=== PATIENT | male | born 1950 | race Caucasian/White ===

== ENCOUNTER → 2016-09-07 | Outpatient (CLI) | payer OTHER | LOC: BHFA 13:15 | PROVIDERS: ATTEND Internal Medicine Cardiovascular Disease | DX: I48.91 Unspecified atrial fibrillation (principal); I25.10 Atherosclerotic heart disease of native coronary artery without angina pectoris; E78.00 Pure hypercholesterolemia, unspecified ==

== ENCOUNTER → 2016-09-17 | Outpatient (CLI) | payer OTHER | LOC: BHFA 10:00 | PROVIDERS: ATTEND Internal Medicine Cardiovascular Disease | DX: I48.91 Unspecified atrial fibrillation (principal); R94.30 Abnormal result of cardiovascular function study, unspecified | CPT/HCPCS: 78452; 93017; A9500 ==

== ENCOUNTER → 2017-05-31 | Outpatient (CLI) | payer OTHER, MEDICARE | LOC: FIMAGING 10:44 | PROVIDERS: ATTEND Physician Assistant | DX: R22.1 Localized swelling, mass and lump, neck (principal) ==

== ENCOUNTER → 2017-06-19 | Outpatient (CLI) | payer OTHER, MEDICARE ==
[~2017-06-19] MED LIST: IOPAMIDOL (ISOVUE 370) 100 ML BTL IV ONE
== END ==
LOC: FIMAGING 08:22
PROVIDERS: ATTEND Internal Medicine Cardiovascular Disease
DX: Z01.810 Encounter for preprocedural cardiovascular examination (principal); I48.91 Unspecified atrial fibrillation
CPT/HCPCS: 75572; 93017; 93306; Q9967

== ENCOUNTER 2017-07-04 06:49 | Observation (INO) | payer OTHER, MEDICARE ==
[2017-07-04] MEDS ORDERED: NS 1,000 ML IV ONE (06:56)
--- NOTE | 2017-07-04 07:12 | CPEKG ---
Heart Rate: 67 RR Interval: 896 P-R Interval: 160 QRSD Interval: 106 QT Interval: 428 QTC Interval: 452 P [place]: 56 QRS [place]: 23 T Wave [place]: 40 EKG Severity - ABNORMAL ECG - EKG Impression: SINUS RHYTHM EKG Impression: SUPRAVENTRICULAR BIGEMINY Electronically Signed By: Hang Morel 04-Jul-2017 09:04:13
[2017-07-04 07:34] LABS: % IMMATURE GRANULYOCYTES 0.5 % (0.0-1.1); ABSOLUTE IMMATURE GRANULOCYTES 0.03 10^3/uL (0.00-0.10); ADD DIFF? NO; ADD MORPH? NO; ADD SCAN? NO; ATYPICAL LYMPHOCYTE FLAG 20 (0-99); FRAGMENT RBC FLAG 0 (0-99); HEMATOCRIT 47.3 % (40.0-51.0); HEMOGLOBIN 16.5 g/dL (13.7-17.5); LEFT SHIFT FLG 0 (0-99); LIPEMIA HEMOLYSIS FLAG 90 (0-99); MEAN CELL HEMOGLOBIN CONCENTR. 34.9 g/dL (32.4-36.7); MEAN CELL VOLUME 91.7 fL (81.5-99.8); MEAN PLATELET VOLUME 9.5 fL (8.7-11.7); PLATELET CLUMPS FLAG 0 (0-99); PLATELET COUNT 199 10^3/uL (150-400); RED BLOOD CELL COUNT 5.16 10^6/uL (4.40-6.38); RED CELL DISTRIBUTION WIDTH 13.2 % (11.5-15.2)
[2017-07-04 07:44] LABS: ANION GAP 14 mEq/L (8-16); CALCIUM 9.9 mg/dL (8.5-10.4); CARBON DIOXIDE 21 mEq/l (22-31); CHLORIDE 109 mEq/L (97-110); CREATININE 1.1 mg/dL (0.7-1.3); GLOMERULAR FILTRATION RATE > 60; GLUCOSE 111 mg/dL (70-100); POTASSIUM 4.4 mEq/L (3.5-5.2); SODIUM 144 mEq/L (134-144)
[2017-07-04 07:46] LABS: INR 0.88 (0.83-1.16); PROTIME(PATIENT) 12.2 SEC (12.0-15.0)
[2017-07-04 07:47] LABS: APTT 26.5 SEC (23.0-38.0)
[2017-07-04] MEDS ORDERED: HEPARIN/DEXTROSE 25,000 UNIT/500 ML BAG ONE (08:24)
[2017-07-04] MEDS ORDERED: IOPAMIDOL (ISOVUE-300) 100 ML BTL ONE (08:24)
[2017-07-04] MEDS ORDERED: HEPARIN 10,000 UNIT/10 ML MDV ONE (08:24)
[2017-07-04] MEDS ORDERED: BUPIVACAINE 0.5% 30 ML SDV ONE (08:25)
[2017-07-04] MEDS ORDERED: LIDOCAINE 1% 300 MG/30 ML SDV ONE (08:25)
[2017-07-04] MEDS ORDERED: MIDAZOLAM 2 MG/2 ML VIAL IVP ONE (08:31)
--- NOTE | 2017-07-04 08:35 | PDANEPAE ---
ANE Past Medical History - Cardiovascular History Hx Hypertension: Yes Hx Arrhythmias: Yes Hx Coronary Artery / Peripheral Vascular Disease: Yes - Pulmonary History Hx COPD: No Hx Asthma/Reactive Airway Disease: No Hx Recent Upper Respiratory Infection: No Hx Oxygen in Use at Home: No Hx Sleep Apnea: Yes ANE Review of Systems Review of Systems: ANE Patient History - Allergies Allergies/Adverse Reactions: No Known Allergies Allergy (Unverified 07/04/17 06:55) - Home Medications Home Medications: Apixaban [Eliquis] 5 mg PO BID 07/01/17 [Last Taken 06/30/17] Ascorbic Acid [Vitamin C 500 mg (*)] 500 mg PO DAILY 07/01/17 [Last Taken 1 Day Ago ~07/03/17] Cholecalciferol (Vitamin D3) [Vitamin D3] 10,000 unit PO DAILY 07/01/17 [Last Taken 1 Day Ago ~07/03/17] Cyanocobalamin [Vitamin B12 (*)] 5,000 mcg PO DAILY 07/01/17 [Last Taken 1 Day Ago ~07/03/17] Fluticasone Nasal [Flonase Nasal [place] (RX)] 2 sprays EACHNARE DAILY PRN [Last Taken 1 Day Ago ~07/03/17] Folic Acid 0.4 mg PO DAILY 07/01/17 [Last Taken 1 Day Ago ~07/03/17] Herbals/Supplements -Info Only 1 ea PO DAILY 07/01/17 [Last Taken 1 Day Ago ~01/12] [place]-3 Fatty Acids [Fish Oil 1000 mg (*)] 3,000 mg PO DAILY 07/01/17 [Last Taken 1 Day Ago ~07/03/17] Propafenone HCl Sr [Rythmol Sr 325mg (*)] 325 mg PO Q12 07/01/17 [Last Taken 2 Days Ago ~07/02/17] Propylene Glycol [Systane Balance] 1 drop EACHEYE TID PRN 07/01/17 [Last Taken 1 Day Ago ~07/03/17] Rosuvastatin Calcium [Crestor 5mg] 2.5 mg PO DAILY 07/01/17 [Last Taken 1 Day Ago ~07/03/17] Ubidecarenone/Vit E Acet [Co Q-10 100 mg Softgel] 1 each PO DAILY 07/01/17 [ Last Taken 1 Day Ago ~07/03/17] Vitamin B Complex [Balanced B-50] 1 each PO DAILY 07/01/17 [Last Taken 1 Day Ago ~07/03/17] - Smoking Hx Smoking Status: Never smoked ANE Labs/Vital Signs - Labs Result Diagrams: 07/04/17 07:15 07/04/17 07:15 - Vital Signs Height: 173 cm Weight: 97 kg ANE Physical Exam - Airway Neck exam: FROM Mallampati Score: Class 2 Mouth exam: normal dental/mouth exam - Pulmonary Pulmonary: no respiratory distress - Cardiovascular Cardiovascular: irregularly irregular - ASA Status ASA Status: III ANE Anesthesia Plan Anesthesia Plan: general endotracheal anesthesia
[2017-07-04] MEDS ORDERED: PROPOFOL 200 MG/20 ML VIAL ONE ×2 (08:50→09:26)
[2017-07-04] MEDS ORDERED: fentaNYL 250 MCG/5 ML INJ ONE (08:52)
--- NOTE | 2017-07-04 08:57 | PDGENHP ---
History & Physical Chief Complaint: symptomatic afib History of Present Illness: symptomatic afib Relevant Physical Exam: s1s2 rrr. cta. ao3 Cardiorespiratory Assessment: symptomatic afib. planned pvi
[2017-07-04] MEDS ORDERED: MIDAZOLAM 2 MG/2 ML VIAL ONE (10:49)
[2017-07-04] MEDS ORDERED: fentaNYL 100 MCG/2 ML INJ ONE (10:52)
[2017-07-04] MEDS ORDERED: ONDANSETRON 4 MG/2 ML VIAL ONE (11:07)
[2017-07-04] MEDS ORDERED: PHENYLEPHRINE HCL 100 MCG/ML SYR ONE (11:08)
[2017-07-04] MEDS ORDERED: DEXAMETHASONE 4 MG/ML VIAL ONE (11:08)
[2017-07-04] MEDS ORDERED: ROCURONIUM 100 MG/10 ML VIAL ONE (11:08)
[2017-07-04] MEDS ORDERED: PROPOFOL/EMULSION 500 MG/50 ML BOTTLE IV ONE (11:14)
[2017-07-04] MEDS ORDERED: PROTAMINE SULFATE 50 MG/5 ML VIAL IVP ONE (11:43)
[2017-07-04] MEDS ORDERED: ONDANSETRON 4 MG/2 ML VIAL IVP PRN (12:11)
[2017-07-04] MEDS ORDERED: FLUTICASONE NASAL 120 SPRAYS/16 GM MDI EACHNARE PRN (12:13)
[2017-07-04] MEDS ORDERED: NON-FORMULARY NEW DRUG (Propylene Glycol [Systane Balance] 1 DROP) EACHEYE PRN (12:13)
--- NOTE | 2017-07-04 12:17 | EPPROC ---
Electrophysiology Procedure Note: ELECTROPHYSIOLOGIC STUDY AND BALLOON-CATHETER MEDIATED CRYOABLATION FOR PAROXYSMAL ATRIAL FIBRILLATION Procedures performed: 27676-81 EP evaluation with RA/RV/LA pace/record, with arrhythmia induction 18198-44 EP evaluation with RA/RV pace record, insert/reposition catheter, with arrhythmia induction 02854 Atrial fibrillation ablation Intracardiac echocardiogram Transseptal puncture Fluoroscopy INDICATION: Paroxysmal atrial fibrillation PROCEDURE: The patient arrived in the Electrophysiology Laboratory in the fasting state. The right groin, left groin and right infraclavicular area were prepped and draped in the usual sterile fashion. Anesthesiologist administered general anesthesia Dr. Kirby . All catheters were placed percutaneously using the Seldinger technique and advanced into position under fluoroscopic guidance. One #7 Ukrainian deflectable octapolar electrode catheter was placed in the His-bundle position via the left femoral vein (2mm spacing, IVC electrode for unipolar recordings). This catheter was placed in the coronary sinus after transseptal puncture and later placed in the SVC-R subclavian vein junction to pace the right phrenic nerve during right pulmonary vein ablation. One #8 Ukrainian AcuNaV ultrasound catheter was placed in the left femoral vein and advanced into the right atrium. One #4 Ukrainian sheath was inserted into the left femoral artery via percutaneous technique and used for continuous arterial blood pressure monitoring and intermittent ACT determination. Programmed stimulation was performed from the right atrium, left atrium (CS) and right ventricle. There was no evidence of AV accessory pathway. Intracardiac echo evaluation of the left atrium and pulmonary veins was performed. Baseline ACT was drawn and heparin bolus was administered and heparin drip was started prior to transseptal puncture. ACT was checked every 15 minutes and maintained in the range of 350-400 seconds. One 14Fr short sheath was placed in the right femoral vein. One 8Fr SL1 sheath was advanced into the right atrium via the 14Fr short sheath. Transseptal puncture was performed under intracardiac ultrasound, fluoroscopic and hemodynamic guidance placing the sheath into the left atrium. Inman RF needle ( C0 curve) was used. The mean left atrial pressure was 8 mmHg. Pulmonary vein angiogram was done using SL1 sheath. CT angiography of pulmonary veins was done previously. There were distinct LSPV, LIPV, RSPV and RIPV. The SL1 sheath was exchanged for a Compieretronic Flexcath sheath using an Amplatz stiff guide wire. Sheath exchange was difficult due to thick interatrial septum and dilator of 16Fr peripheral Cook sheath needed to be used to predilate. A 28 mm Cryoballoon catheter with a 20 mm Achieve catheter was placed via the sheath into the left atrium. Intracardiac ultrasound and PV angiograms were used to assist in placing the mapping catheter at the antrum of the pulmonary veins. All pulmonary veins were isolated successfully using cryoballoon ablation using freeze/thaw/freeze cycles at 2-3-minute intervals, with good [id number]-[id number] of isolation. Coumadin ridge/Ligament of [place] region was ablated. Pre and post pulmonary vein recordings were measured on the spiral Achieve catheter to ensure complete pulmonary vein isolation. During the right-sided ablation, phrenic nerve pacing was performed to assess the phrenic nerve strength ( manually and with ICE visualization of liver movement during phrenic capture) and the phrenic nerve was intact throughout the right-sided ablation and at the end of the procedure. An esophageal temperature probe (12 electrode, Circa) was placed by the anesthesiologist at the beginning of the procedure. Esophageal temperature was monitored continuously and cryoablation was interrupted if esophageal temperature was <15 C. Cryoapplications 14 total cryoablation time 2944 s. ICE imaging post ablation was consistent with pre ablation imaging with no changes noted, moreover there was no left atrial/left ventricular thrombus and no pericardial effusion. The catheters were withdrawn. Protamine was given. The sheaths were removed and manual pressure was used for hemostasis. The patient was recovered from anesthesia. There were no complications. The patient was arousable and moving all four extremities at the end of the procedure. CONCLUSIONS: 1. Paroxysmal atrial fibrillation. 2. Successful pulmonary vein isolation procedure (left and right pulmonary vein antrum) using cryoballoon ablation. 3. No apparent complications. Patient Problems: Problems Problem Status Onset Atrial fibrillation Acute
[2017-07-04] MEDS ORDERED: (Propylene Glycol [Systane Balance] 1 DROP) EACHEYE PRN (12:43)
--- NOTE | 2017-07-04 12:59 | POSTANESTH ---
Post Anesthetic Evaluation Cardiovascular Status: Similar to Pre-Op Cond Respiratory Status: Normal, Stable Level of Consciousness/Mental Status: Can Participate in Eval Pain Control: Adequate, Prn Tx Ordered Nausea/Vomiting Control: Adequate, Prn Tx Ordered Complications Possibly Related to Anesthesia: None Noted
[2017-07-04] MEDS ORDERED: ATROPINE SULFATE 1 MG/10 ML SYR ONE (13:36)
[2017-07-04 14:49] LABS: ANION GAP 10 mEq/L (8-16); CALCIUM 8.2 mg/dL (8.5-10.4); CARBON DIOXIDE 23 mEq/l (22-31); CHLORIDE 111 mEq/L (97-110); GLOMERULAR FILTRATION RATE > 60; GLUCOSE 142 mg/dL (70-100); MAGNESIUM 1.8 mg/dL (1.6-2.3); POTASSIUM 4.3 mEq/L (3.5-5.2); SODIUM 144 mEq/L (134-144)
--- NOTE | 2017-07-04 15:04 | CPEKG ---
Heart Rate: 72 RR Interval: 833 P-R Interval: 148 QRSD Interval: 98 QT Interval: 412 QTC Interval: 451 P [place]: 54 QRS [place]: 54 T Wave [place]: 47 EKG Severity - NORMAL ECG - EKG Impression: SINUS RHYTHM Electronically Signed By: Hang Morel 04-Jul-2017 16:15:51
[2017-07-04] MEDS: ENOXAPARIN 100 MG/ML SYR SC SCH (18:33)
[2017-07-05] MEDS: ENOXAPARIN 100 MG/ML SYR SC SCH (06:16)
[2017-07-05 06:25] LABS: % IMMATURE GRANULYOCYTES 0.3 % (0.0-1.1); ABSOLUTE IMMATURE GRANULOCYTES 0.03 10^3/uL (0.00-0.10); ADD DIFF? NO; ADD MORPH? NO; ADD SCAN? NO; ATYPICAL LYMPHOCYTE FLAG 30 (0-99); FRAGMENT RBC FLAG 0 (0-99); HEMATOCRIT 43.2 % (40.0-51.0); HEMOGLOBIN 15.2 g/dL (13.7-17.5); LEFT SHIFT FLG 0 (0-99); LIPEMIA HEMOLYSIS FLAG 90 (0-99); MEAN CELL HEMOGLOBIN 31.9 pg (27.9-34.1); MEAN CELL HEMOGLOBIN CONCENTR. 35.2 g/dL (32.4-36.7); MEAN CELL VOLUME 90.8 fL (81.5-99.8); MEAN PLATELET VOLUME 9.6 fL (8.7-11.7); PLATELET CLUMPS FLAG 0 (0-99); PLATELET COUNT 205 10^3/uL (150-400); RED BLOOD CELL COUNT 4.76 10^6/uL (4.40-6.38); RED CELL DISTRIBUTION WIDTH 13.2 % (11.5-15.2)
[2017-07-05 06:37] LABS: INR 0.99 (0.83-1.16); PROTIME(PATIENT) 13.3 SEC (12.0-15.0)
[2017-07-05 06:56] LABS: ANION GAP 10 mEq/L (8-16); CALCIUM 9.2 mg/dL (8.5-10.4); CARBON DIOXIDE 23 mEq/l (22-31); CHLORIDE 109 mEq/L (97-110); GLOMERULAR FILTRATION RATE > 60; GLUCOSE 101 mg/dL (70-100); POTASSIUM 4.1 mEq/L (3.5-5.2); SODIUM 142 mEq/L (134-144)
[2017-07-05 07:07] LABS: CK-MB INTERPRETATION POSITIVE (NEGATIVE)
--- NOTE | 2017-07-05 08:42 | CPEKG ---
Heart Rate: 74 RR Interval: 811 P-R Interval: 156 QRSD Interval: 102 QT Interval: 384 QTC Interval: 426 P [place]: 50 QRS [place]: 28 T Wave [place]: 19 EKG Severity - NORMAL ECG - EKG Impression: SINUS RHYTHM Electronically Signed By: Frankie Dorsey 05-Jul-2017 20:53:12
[2017-07-05 08:59] VITALS: TEMP 98.1
[2017-07-05] MEDS ORDERED: ROSUVASTATIN CALCIUM 10 MG TAB PO SCH (09:00)
[2017-07-05] MEDS ORDERED: ROSUVASTATIN CALCIUM 2.5 MG PO SCH (09:00)
[2017-07-05 11:56] VITALS: BP 116/67; PULSE 88; RESP 15; O2SAT 94
--- NOTE | 2017-07-05 12:01 | ECHO ---
[email or web address] [address] [address] Main: [phone] Fax: Transthoracic Echocardiogram Name: ISAURA LOPEZ MR#: [id number] Study Date: 07/05/2017 Study Time: 08:42 AM Date of : 1950 Age: 67 year(s) Height: 172.7 cm (68 in.) Weight: 96.62 kg (213 lb.) BSA: 2.1 m2 Gender: Male Examination: Echo Indication: Post EP Image Quality: Contrast: Requested by: Hang Morel BP: 110 mmHg/60 mmHg Heart Rate: Rhythm: Indication: Post EP Procedure Staff Coat Operator Insulator: Morales Lundberg Reading Physician: Hang Morel Requesting Provider: Conclusions: Normal global systolic LV function. EF is 64 %. Diastolic dysfunction is present. . No pericardial effusion. Measurements: Chambers Valvular Assessment AV/MV Valvular Assessment TV/PV Normal Normal Normal Name Value Range Name Value Range Name Value Range Ao Xiom[place] (MM): 3.1 cm (2.2 cm-3.7 AV Vmax: 1.71 m/s (1 m/s-1.7 TR Vmax: 2.62 mm/s ( - ) cm) m/s) TR PGmax: 27 mmHg ( - ) IVSd (2D): 1.0 cm (0.6 cm-1.1 AV maxP mmHg ( - ) syst. PAP: 32 mmHg ( - ) cm) LVOT Vmax: 0.96 m/s (0.7 m/s-1.1 PV Vmax: 0.99 m/s (0.6 m/s-0.9 LVDd (2D): 4.9 cm (4.2 cm-5.9 m/s) m/s) cm) AR (PHT): 613 ms ( - ) PV PGmax: 4 mmHg ( - ) LVDs (2D): 3.2 cm (2.1 cm-4 MV E Vmax: 0.87 m/s ( - ) cm) MV A Vmax: 0.76 m/s ( - ) LVPWd (2D): 1.1 cm (0.6 cm-1 MV E/A: 1.14 ( - ) cm) LVEF (2D): 64 (>=54 %) Continued Measurements: Chambers Valvular Assessment AV/MV Valvular Assessment TV/PV Name Value Name Value Name Value LADs Lon.4 cm MV E' Septal: 0.06 m/s CVP (est.): 5 mmHg LA Area: 23.7 cm2 MV E/E' Septal: 13.70 LA Volume: 65 ml MV E/E' Lateral: 7.10 LA Volume Index: 31.0 ml/m2 AR Vmax: 3.99 cm/s Patient: ISAURA LOPEZ Study Date: 07/05/2017 Page 1 of 2 08:42 AM Findings: Left Ventricle: Normal size left ventricle. No LV hypertrophy. Normal global systolic LV function. EF is 64 %. No regional wall motion abnormality. Diastolic dysfunction is present. . Right Ventricle: Normal size right ventricle. Left Atrium: The left atrium is normal in size. Right Atrium: The right atrium is normal in size. Mitral Valve: The mitral valve is normal in appearance and function. Trivial mitral valve regurgitation. Aortic Valve: The aortic valve is normal in appearance and function. The aortic valve is tri-leaflet. Trivial aortic valve regurgitation. Tricuspid Valve: The tricuspid valve is normal in appearance and function. Trivial tricuspid valve regurgitation. The pulmonary artery pressure is normal. Pulmonic Valve: The pulmonic valve is normal in appearance and function. Aorta: The aorta is normal. Pericardium: No pericardial effusion. (No Signature Object) Patient: ISAURA LOPEZ Study Date: 07/05/2017 Page 2 of 2 08:42 AM [id number]
--- NOTE | 2017-07-05 17:14 | ASDISCHSUM ---
Discharge Information Plan Status:Home with No Needs Medically Cleared to Leave:07/04/2017 Discharge Date:07/05/2017 12:36 PM CM D/C Disposition:Home, Routine, Self-Care ADT D/C Disposition:Home, Routine, Self-Care Projected Discharge Date:07/05/2017 12:00 AM Transportation at D/C: Discharge Delay Reason: Follow-Up Date:07/05/2017 12:00 AM Discharge Slot: Final Diagnosis: Placement Information Patient Contact Information Contact Name:PELON Relationship: Address:[address] [place] [address] City:[facility] Phone: [facility]/Zip Code:[place] [address] Email: Financial Information Financial Class: Primary Plan Desc:MEDICARE OUTPATIENT Primary Plan Number:[id number] Secondary Plan Desc:[employer]/MDR SUPPLEMENT Secondary Plan Number:[id number] Assessment Information Intervention Information Intervention Type:*BURKS-Signed Date of Service:07/05/2017 09:14 AM Patient Type:Observation Staff Member:Rosa Iqbal Hours: Discipline: Severity: Comment:
--- NOTE | 2017-07-06 00:01 | GDS ---
[f rep st] DISCHARGE SUMMARY DISCHARGE DIAGNOSES: 1. Paroxysmal atrial fibrillation. 2. Status post atrial fibrillation ablation. 3. Coronary artery disease. 4. Obstructive sleep apnea. BRIEF HISTORY: This is a 67-year-old man with a history of atrial fibrillation for 4 years with incr easing frequency with symptoms of fatigue and palpitations. He was experiencing side effects with Ry thmol. He has a [id number] score of 1. HOSPITAL COURSE: Dr. Morel performed a successful pulmonary vein isolation procedure using cryo balloo n ablation. Patient has done well overnight. He has not had any atrial arrhythmias or ventricular a rrhythmias. He denies any chest pain, pressure, or tightness. He has not had any shortness of breat h. His throat is slightly sore from the ET tube, and he is coughing. No pain at his groin sites or in his legs. Telemetry demonstrated sinus rhythm without any arrhythmias. TESTING DONE: Echocardiogram: Ejection fraction is 64% without any wall motion abnormalities. Ther e is no pericardial effusion. A 12-lead EKG demonstrates sinus rhythm without ST-T wave changes. est CT done on June 19, 2017, prior to planned atrial fibrillation ablation demonstrated normal p ulmonary vein anatomy. LAB WORK DONE: WBC is 9.82, hemoglobin 15.2, hematocrit 43.2, platelets 205. Sodium 142, potassium 4.1, chloride 109, bicarb 23, BUN 17, creatinine is 1.0, glucose is 101. CK is 246. CK-MB fraction is 19.5. CK-MB percent is 7.9. Troponin is 8.65. These are elevated cardiac enzymes; however, to b e expected post ablation. PHYSICAL EXAMINATION: VITAL SIGNS: Blood pressure is 110/60, pulse is 70, respirations 17, temperat ure is 36.9, O2 saturation is 95% on room air. GENERAL: He is alert and oriented, sitting up in bed , in no acute distress. CARDIAC: Regular rate and rhythm without murmur, rub, or gallop. LUNGS: C lear to auscultation. ABDOMEN: Soft and nontender. GROINS: Sites are without bleeding or hematoma . One suture was removed from the left femoral vein without problem. EXTREMITIES: Warm. No discol oration. No lower extremity edema. DISCHARGE INSTRUCTIONS: Reviewed post ablation activity restrictions with patient and he was also gi andrew written instructions at the time of discharge. He was given an incentive spirometer to use for t he next few days, every 4 hours while awake. DISCHARGE MEDICATIONS: Please see discharge medication reconciliation. Of note, his Rythmol was sto pped, and he will continue his Eliquis for at least 3 months. He will restart that this evening as u sual. He did receive a Lovenox dose this morning at 6 a.m. FOLLOWUP: He has a followup with Dr. Morel on July 18 at 9:30. /[id number]/MODL
== END 2017-07-05 12:36 | disposition home or self-care (01) ==
LOC: FCATH 06:49 → F2N 12:11
PROVIDERS: ADMIT Internal Medicine Cardiovascular Disease; ATTEND Internal Medicine Cardiovascular Disease
PROC: 025S3ZZ Destruction of Right Pulmonary Vein, Percutaneous Approach (ICD-10-PCS; principal; 2017-07-04)
PROC: B2151ZZ Fluoroscopy of Left Heart using Low Osmolar Contrast (ICD-10-PCS; principal; 2017-07-04)
PROC: 025T3ZZ Destruction of Left Pulmonary Vein, Percutaneous Approach (ICD-10-PCS; principal; 2017-07-04)
PROC: B244YZZ Ultrasonography of Right Heart using Other Contrast (ICD-10-PCS; principal; 2017-07-04)
PROC: 02K83ZZ Map Conduction Mechanism, Percutaneous Approach (ICD-10-PCS; principal; 2017-07-04)
DX: I48.0 Paroxysmal atrial fibrillation (principal); I25.10 Atherosclerotic heart disease of native coronary artery without angina pectoris; G47.33 Obstructive sleep apnea (adult) (pediatric)
CPT/HCPCS: 93005; 93306; 93656; 93662; C1730; C1731; C1732; C1733; C1759; C1766; C1769; C1893; J1100; J1644; J1650; J2250; J2370; J2405; J2704; J2720; J3010; Q9967; J0461

== ENCOUNTER → 2017-07-18 | Outpatient (CLI) | payer OTHER, MEDICARE | LOC: FLAB 10:37 | PROVIDERS: ATTEND Internal Medicine Cardiovascular Disease | DX: I48.91 Unspecified atrial fibrillation (principal); R05 Cough ==

== ENCOUNTER → 2017-08-05 | Outpatient (CLI) | payer OTHER, MEDICARE | LOC: BHFA 11:00 | PROVIDERS: ATTEND Internal Medicine Cardiovascular Disease | DX: I48.91 Unspecified atrial fibrillation (principal); I25.10 Atherosclerotic heart disease of native coronary artery without angina pectoris ==

== ENCOUNTER → 2017-10-08 | Outpatient (CLI) | payer OTHER, MEDICARE | LOC: BHFA 09:15 | PROVIDERS: ATTEND Internal Medicine Cardiovascular Disease | DX: G45.3 Amaurosis fugax (principal) ==

== ENCOUNTER → 2017-11-27 | Outpatient (CLI) | payer OTHER, MEDICARE ==
[~2017-11-27] MED LIST changes: +GADOBUTROL 10 ML VIAL IVP ONE
== END ==
LOC: FIMAGING 13:40
PROVIDERS: ATTEND Psychiatry & Neurology Neurology
DX: Z01.818 Encounter for other preprocedural examination (principal); G43.109 Migraine with aura, not intractable, without status migrainosus; G45.3 Amaurosis fugax; G45.9 Transient cerebral ischemic attack, unspecified; M51.24 Other intervertebral disc displacement, thoracic region; M48.04 Spinal stenosis, thoracic region
CPT/HCPCS: 70200; 70496; 70498; 70553; A9585; Q9967

== ENCOUNTER → 2018-01-02 | Outpatient (CLI) | payer OTHER, MEDICARE | LOC: BHFA 09:30 | PROVIDERS: ATTEND Internal Medicine Cardiovascular Disease | DX: I48.91 Unspecified atrial fibrillation (principal); R94.39 Abnormal result of other cardiovascular function study ==

== ENCOUNTER 2018-09-26 09:38 | Day surgery (SDC) | payer OTHER, MEDICARE ==
[~2018-09-26 09:38] MED LIST changes: -GADOBUTROL 10 ML VIAL IVP ONE; -IOPAMIDOL (ISOVUE 370) 100 ML BTL IV ONE; +ceFAZolin 2 GM/DEXTROSE 100 ML IV ONE
[2018-09-26] MEDS ORDERED: BUPIVACAINE 0.25% 30 ML SDV ONE (09:55)
[2018-09-26] MEDS ORDERED: LR 1,000 ML IV ONE (10:02)
--- NOTE | 2018-09-26 10:31 | PDHPUP ---
History & Physical Update H&P update statement: This history and physical update is based on an assessment of the patient which was completed after admission or registration (within 24 hours), but prior to the surgery/procedure. H&P update: H&P reviewed & patient examined, no change in patient's condition since H&P completed
--- NOTE | 2018-09-26 10:45 | PDANEPAE ---
ANE History of Present Illness here for open umbilical hernia repair ANE Past Medical History - Cardiovascular History Hx Hypertension: Yes Hx Arrhythmias: Yes Hx Chest Pain: No Hx Coronary Artery / Peripheral Vascular Disease: Yes Hx CHF / Valvular Disease: No Hx Palpitations: No Cardiovascular History Comment: A-FIB PREV ABLATION 2017 - Pulmonary History Hx COPD: No Hx Asthma/Reactive Airway Disease: No Hx Recent Upper Respiratory Infection: No Hx Oxygen in Use at Home: No Hx Sleep Apnea: Yes Sleep Apnea Screening Result - Last Documented: Positive - Neurologic History Hx Cerebrovascular Accident: No Hx Seizures: No Hx Dementia: No - Endocrine History Hx Diabetes: No - Renal History Hx Renal Disorders: No - Liver History Hx Hepatic Disorders: No - Neurological & Psychiatric Hx Hx Neurological and Psychiatric Disorders: No - Cancer History Hx Cancer: No - Congenital Disorder History Hx Congenital Disorders: No - GI History Hx Gastrointestinal Disorders: No - Other Health History Other Health History: MAC DEGENERATION. INFREQUENT OCCULAR MIGRAINES. 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 ABLATION FOR A-FIB 2017. LT RETINAL REATTACHMENT. TONSILLECTOMY ANE Review of Systems Review of systems is: negative Review of Systems: - Exercise capacity METS (RN): 6 METS ANE Patient History - Allergies Allergies/Adverse Reactions: peanut Allergy (Intermediate, Verified 07/04/17 12:22) - Home Medications Home Medications: Apixaban [Eliquis] 5 mg PO DAILY 07/01/17 [Last Taken 3 Days Ago ~09/23/18] Herbals/Supplements -Info Only 1 ea PO DAILY 07/01/17 [Last Taken 2 Weeks Ago ~ 09/12/18] Crestor HS 09/18/18 [Last Taken 09/25/18] Zetia 10 MG (*) HS 09/18/18 [Last Taken 09/25/18] - NPO status NPO Status: no food or drink >8 hours NPO Since - Liquids (Date): 09/26/18 NPO Since - Liquids (Time): 07:00 NPO Since - Solids (Date): 09/25/18 NPO Since - Solids (Time): 20:00 - Anes Hx Anes Hx: no prior problems - Smoking Hx Smoking Status: Never smoked - Family Anes Hx Family Hx Anesthesia Complications: NEG ANE Labs/Vital Signs - Vital Signs Vital Signs: reviewed preoperatively; see RN documention for details Blood Pressure: 140/85 Heart Rate: 59 Respiratory Rate: 16 O2 Sat (%): 96 Height: 172.72 cm Weight: 99.79 kg ANE Physical Exam - Airway Neck exam: FROM Mallampati Score: Class 1 Mouth exam: normal dental/mouth exam - Pulmonary Pulmonary: no respiratory distress - Cardiovascular Cardiovascular: regular rate and rhythym - ASA Status ASA Status: II ANE Anesthesia Plan Anesthesia Plan: general endotracheal anesthesia
[2018-09-26] MEDS ORDERED: PROPOFOL/EMULSION 500 MG/50 ML BOTTLE IV ONE (10:54)
[2018-09-26] MEDS ORDERED: fentaNYL 100 MCG/2 ML INJ ONE (10:57)
[2018-09-26] MEDS ORDERED: DEXAMETHASONE 4 MG/ML VIAL IVP PRN (11:16)
[2018-09-26] MEDS ORDERED: LR 500 ML IV PRN (11:16)
[2018-09-26] MEDS ORDERED: HYDROmorphONE/DILAUDID 2 MG/ML INJ IVP PRN (11:16)
[2018-09-26] MEDS ORDERED: ONDANSETRON 4 MG/2 ML VIAL IVP PRN (11:16)
[2018-09-26] MEDS ORDERED: NALOXONE HCL 0.4 MG/ML INJ IVP PRN ×2 (11:16→11:19)
[2018-09-26] MEDS ORDERED: ALBUTEROL 3 ML DEYVIAL IH PRN (11:16)
[2018-09-26] MEDS ORDERED: PROMETHAZINE HCL 25 MG/ML INJ IVP PRN (11:19)
[2018-09-26] MEDS ORDERED: oxyCODONE IR 5 MG TAB PO PRN (11:19)
[2018-09-26] MEDS ORDERED: HYDROCODONE/APAP 5/325 TAB PO PRN (11:19)
[2018-09-26] MEDS ORDERED: SUGAMMADEX SODIUM 200 MG/2 ML VIAL IVP ONE (11:40)
--- NOTE | 2018-09-26 12:04 | POSTANESTH ---
Post Anesthetic Evaluation Cardiovascular Status: Normal, Stable Respiratory Status: Normal, Stable Level of Consciousness/Mental Status: Can Participate in Eval Pain Control: Adequate, Prn Tx Ordered Nausea/Vomiting Control: Adequate, Prn Tx Ordered Complications Possibly Related to Anesthesia: None Noted
[2018-09-26] MEDS ORDERED: OXYCODONE/APAP 5/325 TAB PO PRN (12:14)
[2018-09-26] MEDS ORDERED: ONDANSETRON DISINTEGRATING 4 MG TAB PO PRN (12:14)
--- NOTE | 2018-09-26 12:14 | POSTOPPROG ---
Post Op Note Date of Operation: 09/26/18 Surgeon: Amador Morillo (, FACS) Anesthesiologist: Jorge Mullen MD Pre-op Diagnosis: umbilical hernia Post-op Diagnosis: same Procedure: umbilical hernia repair Findings: incarcerated umbilical hernia Inf/Abcess present in the surg proc area at time of surgery?: No EBL: Minimal (10 ml)
[2018-09-26 13:47] VITALS: BP 113/64
--- NOTE | 2018-09-26 14:45 | GOP ---
[f rep st] OPERATIVE REPORT DATE OF OPERATION: 09/26/2018 SURGEON: Amador Morillo MD, FACS ANESTHESIA: General endotracheal. ANESTHESIOLOGIST: Jorge Mullen M.D. PREOPERATIVE DIAGNOSIS: Umbilical hernia. POSTOPERATIVE DIAGNOSIS: Incarcerated umbilical hernia PROCEDURE PERFORMED: Open repair incarcerated umbilical hernia with mesh. FINDINGS: Incarcerated umbilical hernia repaired with a small Ventralex mesh. ESTIMATED BLOOD LOSS: 10 cc. DESCRIPTION OF PROCEDURE: After informed consent was obtained, the patient was brought to the operating room and placed under general anesthesia. The abdomen was prepped and draped in usual fashion. Before proceeding, a time-out identification the patient was performed. 0.25% Marcaine was used to infiltrate the infraumbilical skin and abdominal wall. A curvilinear incision was made below the umbilicus and carried through skin and subcutaneous tissues. The hernia sac came into view immediately and was easily dissected circumferentially but could not be reduced through the fascial defect. Dissection was carried out down to the fascial defect and the hernia sac was noted to be somewhat chronically scarred to the edges of the fascial defect. This was slowly and carefully dissected away from the fascia to allow intact reduction of the peritoneal sac into the preperitoneal space. Once this had been accomplished, the remaining subfascial tissues were liberated from the underlying peritoneum for a distance of 2 cm in all directions of the fascial defect. A small Ventralex mesh was placed into the preperitoneal space through the fascial defect and secured to the fascia circumferentially with interrupted 0 Nurolon sutures. The fascial defect was then closed over the mesh with 2-0 PDS suture. The umbilical skin was tacked to the fascia with interrupted 3-0 Vicryl sutures. Subcutaneous tissues were closed with 3-0 Vicryl suture. The skin was closed with a continuous running 4- 0 Monocryl suture in a subcuticular fashion and followed by Dermabond. The patient was extubated and returned to the recovery room in satisfactory condition. Needle, sponge, and instrument count correct. COMPLICATIONS: None. /[id number]/MODL MTDD
== END 2018-09-26 13:45 | disposition home or self-care (01) ==
LOC: FSGY 09:38
PROVIDERS: ATTEND Surgery
PROC: 0WUF0JZ Supplement Abdominal Wall with Synthetic Substitute, Open Approach (ICD-10-PCS; principal; 2018-09-26 10:45)
DX: K42.0 Umbilical hernia with obstruction, without gangrene (principal); I48.91 Unspecified atrial fibrillation; G47.33 Obstructive sleep apnea (adult) (pediatric)
CPT/HCPCS: C1781; J0690; J2704; J3010